=== PATIENT | male | born 1955 | race Caucasian/White ===

== ENCOUNTER → 2018-01-21 | Outpatient (CLI) | payer OTHER ==
[~2018-01-21] MED LIST: AMLO5 PO; DOCU1CAP39 PO; HYDR-3516 PO; TAMS5CAP PO
[2018-01-21 12:43] LABS: HEMATOCRIT 36.8 % (39.0-51.0); HEMOGLOBIN 12.1 GM/DL (13.0-17.0); MEAN CELL VOLUME 101.9 FL (80.0-100.0); MEAN CORPUSCULAR HEMOGLOBIN 33.5 PG (27.0-34.0); MEAN CORPUSCULAR HGB CONC 32.9 % (32.0-36.0); MEAN PLATELET VOLUME 10.8 FL (7.0-11.0); PLATELET COUNT 130 TH/MM3 (150-450); RED BLOOD COUNT 3.61 MIL/MM3 (4.50-5.90); RED CELL DISTRIBUTION WIDTH 13.7 % (11.6-17.2); WHITE BLOOD COUNT 5.4 TH/MM3 (4.0-11.0)
[2018-01-21 12:46] LABS: BILIRUBIN, URINE NEG (NEG); BLOOD, URINE NEG (NEG); GLUCOSE,URINE NEG (NEG); KETONE, URINE NEG (NEG); NITRITE,URINE NEG (NEG); URINE COLOR LIGHT-YELLOW (YELLW/STRAW); URINE LEUKOCYTE ESTERASE NEG (NEG)
[2018-01-21 12:56] LABS: INTERNATIONAL NORMALIZED RATIO 1.1 RATIO; PROTHROMBIN TIME - PATIENT 10.7 SEC (9.8-11.6)
--- NOTE | 2018-01-21 13:02 | RADRPT ---
EXAM DATE: 01/21/2018 12:50 PM EDT AGE/SEX: 62 years / Male INDICATIONS: Evaluate for pneumothorax, pneumonia and communicable diseases. Pre-op lung biopsy CLINICAL DATA: This is the patient's initial encounter. Patient reports that signs and symptoms have been present for 1 day and indicates a pain score of 0/10. MEDICAL/SURGICAL HISTORY: Hypertension. None. COMPARISON: [facility], CT LUNG SCREENING, 01/07/2018. . FINDINGS: The heart size is within normal limits. The lungs are clear. No effusions are seen. The lungs appear hyperinflated. CONCLUSION: No acute cardiopulmonary process. Electronically signed by: Tj Linares MD 01/21/2018 1:01 PM EDT
[2018-01-21 13:03] LABS: BICARBONATE 27.1 MEQ/L (21.0-32.0); CALCIUM 9.3 MG/DL (8.5-10.1); CREATININE 0.65 MG/DL (0.60-1.30)
--- NOTE | 2018-01-21 17:15 | EKG ---
Date Performed: 01/21/2018 Time Performed: 12:10:58 PTAGE: 62 years EKG: SINUS BRADYCARDIA BORDERLINE ECG Since the PREVIOUS TRACING , no significant change noted DOCTOR: Kj Betts Interpretating Date/Time 01/21/2018 17:14:29
--- NOTE | 2018-01-22 09:55 | RSPPFT ---
DATE OF PROCEDURE: 01/21/18 COMMENTS: VOLUMES DYNAMIC: FVC normal; FEV1 mildly reduced. FLOWS: FEV1% mildly reduced; FEF 25-75 moderately reduced. IMPRESSION: Mild obstructive ventilatory defect.
== END ==
LOC: CPRE 11:48
PROVIDERS: ATTEND Thoracic Surgery (Cardiothoracic Vascular Surgery)
DX: Z01.812 Encounter for preprocedural laboratory examination (principal); Z01.811 Encounter for preprocedural respiratory examination; Z01.810 Encounter for preprocedural cardiovascular examination; R91.8 Other nonspecific abnormal finding of lung field; R00.1 Bradycardia, unspecified
CPT/HCPCS: 36415; 71046; 80048; 81001; 85027; 85610; 85730; 86850; 86900; 86901; 93005; 94010

== ENCOUNTER 2018-01-23 05:31 | Inpatient (IN) | payer OTHER ==
[~2018-01-23] VITALS: Ht 177.8 cm; Wt 71.1 kg
[2018-01-23] VITALS (10 sets, daily range): BP systolic 136–156; BP diastolic 63–73; PULSE 57–79; RESP 17–18; TEMP 98.3–98.7; O2SAT 94–97
[2018-01-23] MEDS ORDERED: METOPROLOL TARTRATE 25 MG TAB PO PRN (06:00)
[2018-01-23] MEDS ORDERED: POVIDONE IODINE 5% (ANTISEPSIS KIT) 4 APPLICATIONS EACH NARE PRN (06:00)
[2018-01-23] MEDS ORDERED: LACTATED RINGER'S 1000 ML IV PRN (06:00)
[2018-01-23] MEDS ORDERED: SODIUM CHLORID 0.9% 500 ML IV PRN (06:00)
[2018-01-23] MEDS ORDERED: CHLORHEXIDINE GLUCONATE 2 % 1 PACK (2 CLOTHS) TOPICAL PRN (06:00)
[2018-01-23] MEDS ORDERED: ceFAZolin 2 GM PREMIX 50 ML ONE (06:50)
[2018-01-23] MEDS ORDERED: methylPREDNISolone SOD SUCC 125 MG/2 ML VIAL ONE (06:50)
[2018-01-23] MEDS ORDERED: CEFAZOLIN 500 MG in NS IRR BTL 500 ML IRRIGATION SCH (07:30)
[2018-01-23] MEDS ORDERED: BUPIVACAINE LIPOSO PF 1.3% INJ 20 ML, DEXAMETHASONE INJ 4 MG, MORPHINE INJ 8 MG in SODI... IRRIGATION ONE (07:30)
[2018-01-23] MEDS ORDERED: CEFAZOLIN IRRIGATION SCH (08:00)
[2018-01-23] MEDS ORDERED: SODIUM CHLORIDE 0.9% IRRIGATION SCH (08:00)
[2018-01-23] MEDS ORDERED: IRR IRRIGATION SCH (08:00)
[2018-01-23] MEDS ORDERED: HYDROmorphone HCL PF 2 MG/ML VIAL ONE (09:00)
[2018-01-23] MEDS ORDERED: PROPOFOL 200 MG/20 ML AMP IV ONE (12:00)
[2018-01-23] MEDS ORDERED: ROCURONIUM INJ 100 MG/10 ML VIAL IV ONE (12:00)
[2018-01-23] MEDS ORDERED: LIDOCAINE HCL 1% PF 5 ML SYRINGE OTHER ONE (12:00)
[2018-01-23] MEDS ORDERED: ceFAZolin INJ 1,000 MG VIAL IV ONE ×2 (12:00→12:14)
[2018-01-23] MEDS ORDERED: NEOSTIGMINE 5 MG/5 ML SYRINGE IV PUSH ONE (12:00)
[2018-01-23] MEDS ORDERED: LACTATED RINGER'S 1000 ML INJ 1,000 ML IV ONE (12:00)
[2018-01-23] MEDS ORDERED: NORMOSOL R INJ 2,000 ML IV ONE (12:00)
[2018-01-23] MEDS ORDERED: ePHEDrine/NS 25 MG/5 ML SYRINGE IV ONE (12:00)
[2018-01-23] MEDS ORDERED: LABETALOL HCL 100 MG/20 ML VIAL IV ONE (12:00)
[2018-01-23] MEDS ORDERED: DEXAMETHASONE SOD PHOS 4 MG/ML VIAL IV ONE (12:00)
[2018-01-23] MEDS ORDERED: GLYCOPYRROLATE 1 MG/5 ML SYRINGE IV PUSH ONE (12:00)
[2018-01-23] MEDS ORDERED: ONDANSETRON HCL 4 MG/2 ML VIAL IV PUSH ONE (12:00)
[2018-01-23] MEDS ORDERED: SUGAMMADEX SODIUM 200 MG/2 ML VIAL IV PUSH ONE (12:10)
[2018-01-23] MEDS ORDERED: SODIUM CHLORIDE 0.9% FLUSH 10 ML FLUSH IV FLUSH PRN (12:30)
[2018-01-23] MEDS ORDERED: NALOXONE HCL 0.4 MG/ML AMP IV PUSH PRN (12:30)
[2018-01-23] MEDS ORDERED: RESP: ALBUTEROL 2.5 MG/3 ML NEB (PRN) NEB (12:30)
[2018-01-23] MEDS ORDERED: ACETAMINOPHEN 325 MG TAB PO PRN (12:30)
[2018-01-23] MEDS ORDERED: Post-op Orders (for Pharmacy) OTHER ONE (12:30)
[2018-01-23] MEDS ORDERED: DO NOT ADM ANY ANTICOAGULANT DRUGS PRN (12:30)
--- NOTE | 2018-01-23 12:49 | PD.OP ---
Operative Report Date of Surgery: Jan 23, 2018 Preoperative Diagnosis: (1) Lung mass (2) COPD (chronic obstructive pulmonary disease) (3) Tobacco abuse Postoperative Diagnosis: same, lung adenocarcinoma Procedure: Left thoracoscopic excisional biopsy left upper lobe mass VATS left upper lobectomy with lymph node sampling Anesthesia: Dr. Redmond Surgeon: Jael Cox Station Inspector(s): Angelica Hsu, PRO Operation and Findings: After adequate general anesthesia the patient was placed in the right lateral decubitus position and the left chest was prepped and draped in usual manner. A small anterior port incision was performed in the 7th intercostal space and electrocautery was used to obtain hemostasis. A 10mm port was inserted into the pleural space with single lung ventilation. Insufflation to 8cmH2O was used to assist in exposure. A second 15 mm port was placed at the same level posteriorly for stapler access. Last, a 6cm utility incision was placed at the 4th intercostal space at the posterior axillary line. Exploration of the left hemithorax was significant for a very small mass in the left upper lobe consistent with the CT-PET scan. An excisional biopsy was performed and submitted for frozen section. This was notable fopr adenocarcinoma. Therefore, a lobectomy was performed. The pleural reflection was divided anteriorly from the major fissure up and around posteriorly. The left superior pulmonary vein was isolated and divided using an endo-ISABELLE vascular stapler. The pulmonary artery segmental arterial branches were ligated and divided in a similar manner. The fissure was developed using an endo ISABELLE stapler and blunt dissection. The right upper lobe bronchus was isolated and divided using an endo ISABELLE stapler. The specimen was submitted to pathology for permanent section. Additionally, a level 5 AP window and level 9 hilar lymph nodes were resected and submitted for permanent section. The inferior pulmonary ligament was divided using electrocautery and blunt dissection. A 32 Italian chest tube was placed through the anterior port incision and secured with 0 silk suture. Esparel intercostal blocks were infused for postoperative analgesia. The lung was ventilated and no significant air leaks were found. The utility port was closed in layers approximately each layer with a running 2-0 vicryl suture. The subcutaneous tissues approximated running 2-0 Vicryl suture and the skin was approximated using running 4-0 Monocryl subcuticular stitch. All sponges history counts were correct at the close the procedure and the patient was transferred to the CVICU for recovery purposes. Specimen: left upper lobe mass, left upper lobe, level 5 and level 9 lymph nodes. Drain: 32F chest tube Jael Cox MD Jan 23, 2018 12:49
[2018-01-23] MEDS ORDERED: *morphine SULFATE 4 MG/ML PERIprocedure ONLY ONE (12:53)
[2018-01-23] MEDS: MORPHINE SULFATE 30 MG/30 ML PCA IV SCH (13:00)
[2018-01-23] MEDS: KETOROLAC TROMETHAMINE 30 MG/ML (IVP) VIAL IV PUSH SCH ×2 (13:09→20:34)
[2018-01-23] MEDS ORDERED: MIDAZOLAM HCL 2 MG/2 ML VIAL ONE (13:10)
--- NOTE | 2018-01-23 13:31 | RADRPT ---
EXAM DATE: 01/23/2018 1:22 PM EDT AGE/SEX: 62 years / Male INDICATIONS: Status post thoracotomy. CLINICAL DATA: This is the patient's initial encounter. Patient reports that signs and symptoms have been present for 1 day and indicates a pain score of Nonresponsive. MEDICAL/SURGICAL HISTORY: Hypertension. None. COMPARISON: No prior exams available for comparison. FINDINGS: 2 portable frontal views of the chest show a left thoracostomy tube with the tip at the apex. No pneu mothorax. Heart is mildly enlarged. Interstitial prominence throughout both lungs most pronounced wit hin the right base. No intra-alveolar opacities or effusions. Bony structures are unremarkable. CONCLUSION: Left thoracostomy tube without pneumothorax. Cardiomegaly with interstitial prominence suggesting int erstitial edema. Electronically signed by: Checo Pagan MD 01/23/2018 1:30 PM EDT
--- NOTE | 2018-01-23 14:56 | PD.CAR.PN ---
CVT Progress Note Subjective/Hospital Course: 62/ male hx of tobacco abuse 2-3ppd fpr 47 yrs . Underwent routine physical exam , CT chest showed 1 cm left upper lobe mass . PET scan showed hypermetabolism consistent with malignancy. electively admitted for surgery 01/23 surgery: Left thoracoscopic excisional biopsy left upper lobe mass VATS left upper lobectomy with lymph node sampling Objective: Vital Signs Date Time Temp Pulse Resp B/P (MAP) Pulse Ox O2 Delivery O2 Flow Rate FiO2 01/23/18 14:00 54 12 152/70 (97) 97 01/23/18 13:45 52 17 139/65 (89) 96 01/23/18 13:30 59 10 150/67 (94) 93 01/23/18 13:15 65 13 166/70 (102) 93 01/23/18 13:00 63 11 176/83 (114) 99 Nasal Cannula 3 01/23/18 13:00 12 01/23/18 12:45 63 12 176/79 (111) 100 01/23/18 12:30 62 12 145/64 (91) 89 Simple Mask 6 01/23/18 12:26 97.1 61 11 146/67 (93) 96 Simple Mask 6 01/23/18 06:00 98.3 52 18 158/79 (105) 97 (1) COPD (chronic obstructive pulmonary disease) (2) Tobacco abuse (3) Lung mass (4) S/P thoracotomy Sandra Otto Jan 23, 2018 14:56
[2018-01-23] MEDS: PANTOPRAZOLE SOD 40 MG DELAYED RELEASE TAB PO SCH (20:33)
[2018-01-23] MEDS: SODIUM CHLORIDE 0.9% FLUSH 10 ML FLUSH IV FLUSH SCH (21:00)
[2018-01-23] MEDS ORDERED: DOCUSATE CALCIUM 240 MG CAP PO SCH (21:00)
[2018-01-23] MEDS: PCA - TOTAL MG MORPHINE DELIVERED PER SHIFT SCH (22:00)
[2018-01-24] VITALS (28 sets, daily range): BP systolic 119–184; BP diastolic 57–78; PULSE 47–77; RESP 17–21; TEMP 97.9–99.3; O2SAT 90–99
[2018-01-24] MEDS: KETOROLAC TROMETHAMINE 30 MG/ML (IVP) VIAL IV PUSH SCH ×2 (03:33→08:30)
[2018-01-24] MEDS: RESP: ALBUTEROL 2.5 MG/3 ML NEB (SCH) NEB ×4 (03:34→22:56)
[2018-01-24 04:27] LABS: AUTOMATED NEUTROPHIL # 8.4 TH/MM3 (1.8-7.7); BASOPHIL % 0.1 % (0.0-2.0); HEMATOCRIT 33.8 % (39.0-51.0); HEMOGLOBIN 11.1 GM/DL (13.0-17.0); LYMPH % 8.3 % (9.0-44.0); LYMPHOCYTE # 0.8 TH/MM3 (1.0-4.8); MEAN CELL VOLUME 102.8 FL (80.0-100.0); MEAN CORPUSCULAR HEMOGLOBIN 33.7 PG (27.0-34.0); MEAN CORPUSCULAR HGB CONC 32.7 % (32.0-36.0); MONO % 7.5 % (0.0-8.0); MONOCYTE # 0.7 TH/MM3 (0-0.9); NEUT % 84.1 % (16.0-70.0); PLATELET COUNT 110 TH/MM3 (150-450); RED BLOOD COUNT 3.29 MIL/MM3 (4.50-5.90); RED CELL DISTRIBUTION WIDTH 13.8 % (11.6-17.2); WHITE BLOOD COUNT 9.9 TH/MM3 (4.0-11.0)
--- NOTE | 2018-01-24 04:43 | RADRPT ---
EXAM DATE: 01/24/2018 4:40 AM EDT AGE/SEX: 62 years / Male INDICATIONS: Status post thoracotomy. CLINICAL DATA: This is the patient's subsequent encounter. Patient reports that signs and symptoms h ave been present for 1 day and indicates a pain score of Nonresponsive. MEDICAL/SURGICAL HISTORY: Hypertension. None. COMPARISON: [facility] [place], CHEST SINGLE AP, 01/23/2018. . FINDINGS: Left chest tube without pneumothorax. Focal consolidation right lung base which is a new finding sinc e January 23. Minimal left basilar opacity. No significant effusion. No pneumothorax. CONCLUSION: Left chest tube without pneumothorax. Focal consolidation right lung base. Differential diagnosis inc ludes pneumonia and atelectasis. Electronically signed by: Nitesh Colindres MD 01/24/2018 4:42 AM EDT
[2018-01-24 05:09] LABS: BICARBONATE 28.8 MEQ/L (21.0-32.0); CALCIUM 7.9 MG/DL (8.5-10.1); CREATININE 0.65 MG/DL (0.60-1.30)
[2018-01-24] MEDS: MORPHINE SULFATE 30 MG/30 ML PCA IV SCH (05:18)
[2018-01-24] MEDS: PCA - TOTAL MG MORPHINE DELIVERED PER SHIFT SCH ×3 (06:00→22:00)
[2018-01-24] MEDS ORDERED: BISACODYL 10 MG SUPP RECTAL ONE (08:45)
[2018-01-24] MEDS: SODIUM CHLORIDE 0.9% FLUSH 10 ML FLUSH IV FLUSH SCH ×2 (09:00→21:00)
--- NOTE | 2018-01-24 12:32 | PD.CAR.PN ---
CVT Progress Note Subjective/Hospital Course: 62/ male hx of tobacco abuse 2-3ppd fpr 47 yrs . Underwent routine physical exam , CT chest showed 1 cm left upper lobe mass . PET scan showed hypermetabolism consistent with malignancy. electively admitted for surgery 01/23 surgery: Left thoracoscopic excisional biopsy left upper lobe mass VATS left upper lobectomy with lymph node sampling 01/24 doing well , up in chair chest tube to wall suction + 1 air leak drained 270cc/ 12 hrs pain controlled Objective: GENERAL: A&O x 3 SKIN: Warm and dry. incision intact and well approximated right postero lateral chest wall x 2 HEAD: Normocephalic. EYES: No scleral icterus. No injection or drainage. NECK: Supple, trachea midline. No JVD or lymphadenopathy. CARDIOVASCULAR: Regular rate and rhythm without murmurs, gallops, or rubs. RESPIRATORY: Breath sounds equal bilaterally. No accessory muscle use. chest tube to 20cm suction / + 1 air leak GASTROINTESTINAL: Abdomen soft, non-tender, nondistended. MUSCULOSKELETAL: No cyanosis, or edema. BACK: Nontender without obvious deformity. No CVA tenderness. Vital Signs Date Time Temp Pulse Resp B/P (MAP) Pulse Ox O2 Delivery O2 Flow Rate FiO2 01/24/18 11:30 98.1 54 18 184/77 (112) 90 01/24/18 08:37 94 2.00 01/24/18 08:15 97.9 55 18 119/57 (77) 90 01/24/18 07:01 47 01/24/18 06:36 62 01/24/18 06:00 18 01/24/18 05:30 53 01/24/18 05:18 19 01/24/18 04:18 54 01/24/18 03:16 98.2 54 17 158/71 (100) 99 01/24/18 03:16 58 01/24/18 02:26 59 01/24/18 01:20 56 01/24/18 00:05 55 01/23/18 23:24 98.3 62 18 136/63 (87) 97 01/23/18 23:24 63 01/23/18 22:30 57 01/23/18 22:00 18 01/23/18 21:00 61 01/23/18 20:00 70 01/23/18 19:20 79 01/23/18 19:20 98.5 74 17 152/71 (98) 96 01/23/18 18:01 63 01/23/18 17:07 61 01/23/18 16:38 71 18 150/72 (98) 95 01/23/18 16:36 68 01/23/18 15:55 98.7 65 18 156/73 (100) 94 01/23/18 15:45 98.2 66 12 139/57 (84) 96 Nasal Cannula 2 01/23/18 15:00 66 15 156/67 (96) 97 01/23/18 14:00 54 12 152/70 (97) 97 01/23/18 13:45 52 17 139/65 (89) 96 01/23/18 13:30 59 10 150/67 (94) 93 01/23/18 13:15 65 13 166/70 (102) 93 01/23/18 13:00 63 11 176/83 (114) 99 Nasal Cannula 3 01/23/18 13:00 12 01/23/18 12:45 63 12 176/79 (111) 100 01/23/18 12:30 62 12 145/64 (91) 89 Simple Mask 6 01/23/18 12:26 97.1 61 11 146/67 (93) 96 Simple Mask 6 Labs: Laboratory Tests Test 01/24/18 03:49 White Blood Count 9.9 TH/MM3 (4.0-11.0) Red Blood Count 3.29 MIL/MM3 (4.50-5.90) Hemoglobin 11.1 GM/DL (13.0-17.0) Hematocrit 33.8 % (39.0-51.0) Mean Corpuscular Volume 102.8 FL (80.0-100.0) Mean Corpuscular Hemoglobin 33.7 PG (27.0-34.0) Mean Corpuscular Hemoglobin Concent 32.7 % (32.0-36.0) Red Cell Distribution Width 13.8 % (11.6-17.2) Platelet Count 110 TH/MM3 (150-450) Mean Platelet Volume 11.0 FL (7.0-11.0) Neutrophils (%) (Auto) 84.1 % (16.0-70.0) Lymphocytes (%) (Auto) 8.3 % (9.0-44.0) Monocytes (%) (Auto) 7.5 % (0.0-8.0) Eosinophils (%) (Auto) 0.0 % (0.0-4.0) Basophils (%) (Auto) 0.1 % (0.0-2.0) Neutrophils # (Auto) 8.4 TH/MM3 (1.8-7.7) Lymphocytes # (Auto) 0.8 TH/MM3 (1.0-4.8) Monocytes # (Auto) 0.7 TH/MM3 (0-0.9) Eosinophils # (Auto) 0.0 TH/MM3 (0-0.4) Basophils # (Auto) 0.0 TH/MM3 (0-0.2) CBC Comment DIFF FINAL Differential Comment Blood Urea Nitrogen 12 MG/DL (7-18) Creatinine 0.65 MG/DL (0.60-1.30) Random Glucose 102 MG/DL (74-106) Calcium Level 7.9 MG/DL (8.5-10.1) Sodium Level 142 MEQ/L (136-145) Potassium Level 4.3 MEQ/L (3.5-5.1) Chloride Level 106 MEQ/L (98-107) Carbon Dioxide Level 28.8 MEQ/L (21.0-32.0) Anion Gap 7 MEQ/L (5-15) Estimat Glomerular Filtration Rate 125 ML/MIN (>89) Result Diagram: 01/24/18 0349 01/24/18 0349 (1) S/P thoracotomy Plan: pain control leave chest tube in + 1 air leak / leave to suction pulm toileting await path (2) COPD (chronic obstructive pulmonary disease) Plan: nebs (3) Tobacco abuse Plan: smoking cessation (4) Lung mass Plan: path pending Sandra Otto Jan 24, 2018 12:32
--- NOTE | 2018-01-24 12:35 | HHI.FF ---
Face to Face Verification Diagnosis: (1) COPD (chronic obstructive pulmonary disease) (2) Tobacco abuse (3) Lung mass (4) S/P thoracotomy Home Health Nursing Order: Medication education-adverse effect Wound care and dressing changes Nursing assessment with vital signs Instructions: Thoracic Surgery patients Mandatory frequency Assess and evaluation, 2-3 x a week for one week Initial visit 1. Review post chest surgery instructions chest precautions, Activity, Elastic hose, Incision care, Driving, Incentive spirometry, Smoking, [place] , Work and other) 2. Need Betadine to paint incision 3. Medication reconciliation 4. Importance of follow up care/ check on appointments 5. Make calendar record temperature daily 6. When to call Home nurse, review instructions, phone list 7. Incentive Spirometry, demonstration Visit 1- Begin discharge instruction for patient family and/ or caregiver using teach back method- 1. Signs and symptoms of infection 2. Disease characteristics 3. Medicines and side effects 4. Foods and nutrition/ appetite 5. Infection control/ hand washing/ hygiene Visit 2- Continue teaching 1. Discharge instructions- include additional information on smoking cessation , Visit 3- Continue teaching- 1. Cough and deep breathing, incision monitoring. For any questions please call : / [facility] Cardiothoracic Surgery Incentive spirometry Q1 hr x 10, while awake, also use acapella device hourly whole Chest wall precautions: NO pushing or pulling, ( pt must use chest pillow support chest with all activities and with coughing Daily incision care: ok to shower ( 48hrs after chest tube removed) and then daily, no tub bath. Wash all incisions with liquid dial soap, clean wash cloth to each site, rinse and pat dry. Observe for any signs of infection, such as drainage which is dark yellow, mccann, green or foul smelling. Immediately report to the surgeon any drainage from the chest incision, or legs, and for any abnormal drainage from the chest tube sites. Notify surgeon if any temp > 101.5 degrees F. When specialty dressing removed/ or if you do not have one, continue to shower daily as above, then rinse and pat incision dry and paint with betadine daily x 5 days. Allow steri strips to fall off if you have any. Avoid lotions, creams, salves, oils, etc. for the first month For Dr. Cox patients , please obtain PA & Lat CXR in 2 weeks, results to Dr. Cox ( prescription will be given) ( ) (Tele: ) , F/U appointment: as per [place] instructions: PCP in 2 weeks, CV surgeon 2 weeks, Assistant Produce Manager 3-4 weeks For any questions regarding incisions/ dressing / meds / post op care or above Symptoms, Saturday 8am-5pm Heart & Vascular Surgery Office ( Dr. Martino & Dr. Cox), After Hours / Nights (5pm -8am) Weekends and Holidays Please call [facility] Cardiac [facility] Unit ([facility]) Charge Nurse I have seen patient Maurisio Berman on 01/24/18. My clinical findings support the need for the requested home health care services because: Deconditioned w/ increased weakness I certify that my clinical findings support that this patient is homebound because: Post-op weakness Hx COPD- exertion dyspnea/weakness Sandra Otto Jan 24, 2018 12:35
[2018-01-24] MEDS: TAMSULOSIN HCL 0.4 MG CAP PO SCH (17:29)
[2018-01-24] MEDS: DOCUSATE SODIUM 100 MG CAP PO SCH ×2 (21:00→21:10)
[2018-01-24] MEDS: PANTOPRAZOLE SOD 40 MG DELAYED RELEASE TAB PO SCH (21:10)
[2018-01-24] MEDS: ONDANSETRON ODT 4 MG TAB SL PRN (21:10)
[2018-01-25] VITALS (29 sets, daily range): BP systolic 125–159; BP diastolic 60–72; PULSE 57–72; RESP 17–19; TEMP 98.2–99; O2SAT 86–99
[2018-01-25] MEDS: RESP: ALBUTEROL 2.5 MG/3 ML NEB (SCH) NEB ×4 (04:03→20:31)
[2018-01-25] MEDS: ONDANSETRON ODT 4 MG TAB SL PRN (04:37)
[2018-01-25] MEDS: PCA - TOTAL MG MORPHINE DELIVERED PER SHIFT SCH ×2 (06:00→10:01)
[2018-01-25] MEDS: POLYETHYLENE GLYCOL 17 GM PKG PO SCH (09:30)
[2018-01-25] MEDS: DOCUSATE SODIUM 100 MG CAP PO SCH ×2 (09:30→21:14)
[2018-01-25] MEDS: TAMSULOSIN HCL 0.4 MG CAP PO SCH (09:30)
[2018-01-25] MEDS: SODIUM CHLORIDE 0.9% FLUSH 10 ML FLUSH IV FLUSH SCH ×2 (09:33→21:15)
--- NOTE | 2018-01-25 09:40 | PD.CAR.PN ---
CVT Progress Note Subjective/Hospital Course: 62/ male hx of tobacco abuse 2-3ppd fpr 47 yrs . Underwent routine physical exam , CT chest showed 1 cm left upper lobe mass . PET scan showed hypermetabolism consistent with malignancy. electively admitted for surgery 01/23 surgery: Left thoracoscopic excisional biopsy left upper lobe mass VATS left upper lobectomy with lymph node sampling 01/24 doing well , up in chair chest tube to wall suction + 1 air leak drained 270cc/ 12 hrs pain controlled 01/[address] with small air-leak. Keep to suction Change IV HAND PACKAGER to PO Meds Ambulate Objective: Vital Signs Date Time Temp Pulse Resp B/P (MAP) Pulse Ox O2 Delivery O2 Flow Rate FiO2 01/25/18 09:00 66 01/25/18 08:33 95 Nasal Cannula 2.00 01/25/18 08:00 59 01/25/18 07:15 58 01/25/18 07:15 98.2 64 17 138/63 (88) 97 01/25/18 07:15 97 Nasal Cannula 2.00 01/25/18 06:06 60 01/25/18 06:00 19 01/25/18 05:23 62 01/25/18 04:25 68 01/25/18 03:30 67 01/25/18 03:20 99.0 65 19 159/72 (101) 92 01/25/18 02:00 64 01/25/18 01:20 69 01/25/18 00:20 72 01/24/18 23:28 99.3 73 20 170/78 (108) 94 01/24/18 23:28 73 01/24/18 22:00 75 01/24/18 22:00 18 01/24/18 21:30 77 01/24/18 20:02 68 01/24/18 19:20 75 01/24/18 19:20 98.7 71 21 159/77 (104) 92 01/24/18 18:00 72 01/24/18 17:00 62 01/24/18 16:00 66 01/24/18 15:15 98.2 65 18 148/70 (96) 96 01/24/18 15:00 67 01/24/18 14:00 66 01/24/18 13:00 62 01/24/18 12:01 76 01/24/18 11:30 98.1 54 18 184/77 (112) 90 01/24/18 11:00 59 01/24/18 10:00 60 Result Diagram: 01/24/18 0349 01/24/18 0349 (1) S/P thoracotomy Plan: pain control leave chest tube in + 1 air leak / leave to suction pulm toileting await path (2) COPD (chronic obstructive pulmonary disease) Plan: nebs (3) Tobacco abuse Plan: smoking cessation (4) Lung mass Plan: path pending Abby Martino MD Jan 25, 2018 09:40
[2018-01-25] MEDS: ACETAMINOPHEN/HYDROcodone 325 MG/5 MG TAB PO PRN ×3 (09:51→21:14)
[2018-01-25] MEDS: PANTOPRAZOLE SOD 40 MG DELAYED RELEASE TAB PO SCH (21:14)
[2018-01-26] VITALS (28 sets, daily range): BP systolic 137–177; BP diastolic 62–82; PULSE 58–75; RESP 16–20; TEMP 97.7–98.4; O2SAT 93–95
[2018-01-26] MEDS: RESP: ALBUTEROL 2.5 MG/3 ML NEB (SCH) NEB ×4 (03:38→20:40)
[2018-01-26] MEDS: ACETAMINOPHEN/HYDROcodone 325 MG/5 MG TAB PO PRN ×4 (05:42→22:04)
[2018-01-26] MEDS: DOCUSATE SODIUM 100 MG CAP PO SCH ×2 (08:16→22:04)
[2018-01-26] MEDS: TAMSULOSIN HCL 0.4 MG CAP PO SCH (08:16)
[2018-01-26] MEDS: POLYETHYLENE GLYCOL 17 GM PKG PO SCH (08:16)
[2018-01-26] MEDS: SODIUM CHLORIDE 0.9% FLUSH 10 ML FLUSH IV FLUSH SCH ×2 (08:19→22:06)
--- NOTE | 2018-01-26 09:22 | PD.CAR.PN ---
CVT Progress Note Subjective/Hospital Course: 62/ male hx of tobacco abuse 2-3ppd fpr 47 yrs . Underwent routine physical exam , CT chest showed 1 cm left upper lobe mass . PET scan showed hypermetabolism consistent with malignancy. electively admitted for surgery 01/23 surgery: Left thoracoscopic excisional biopsy left upper lobe mass VATS left upper lobectomy with lymph node sampling 01/24 doing well , up in chair chest tube to wall suction + 1 air leak drained 270cc/ 12 hrs pain controlled 01/[address] with small air-leak. Keep to suction Change IV MANAGER OF SOFTWARE DEVELOPMENT to PO Meds Ambulate 01/26 Doing well Continued air-leak Maintain CT Objective: Vital Signs Date Time Temp Pulse Resp B/P (MAP) Pulse Ox O2 Delivery O2 Flow Rate FiO2 01/26/18 07:36 93 01/26/18 07:15 98.2 66 19 144/66 (92) 94 01/26/18 07:15 94 Room Air 01/26/18 06:18 61 01/26/18 05:44 65 01/26/18 04:55 66 01/26/18 03:15 98.4 65 18 147/62 (90) 94 01/26/18 03:15 65 01/26/18 02:14 63 01/26/18 01:41 66 01/26/18 00:09 61 01/25/18 23:50 62 01/25/18 23:40 98.4 61 19 149/70 (96) 94 01/25/18 22:00 58 01/25/18 21:00 67 01/25/18 20:35 91 01/25/18 20:00 62 01/25/18 19:40 98.6 66 18 125/60 (81) 93 01/25/18 19:40 57 01/25/18 19:40 93 Room Air 01/25/18 18:00 68 01/25/18 17:36 18 01/25/18 17:00 68 01/25/18 16:00 64 01/25/18 15:51 86 21 01/25/18 15:00 98.2 64 19 133/63 (86) 97 01/25/18 15:00 65 01/25/18 14:00 59 01/25/18 13:00 60 01/25/18 12:00 58 01/25/18 11:00 59 01/25/18 11:00 99 Nasal Cannula 1.00 01/25/18 11:00 98.3 64 18 137/63 (87) 99 01/25/18 10:01 18 01/25/18 10:00 60 Result Diagram: 01/24/18 0349 01/24/18 0349 (1) S/P thoracotomy Plan: pain control leave chest tube in + 1 air leak / leave to suction pulm toileting await path (2) COPD (chronic obstructive pulmonary disease) Plan: nebs (3) Tobacco abuse Plan: smoking cessation (4) Lung mass Plan: path pending Abby Martino MD Jan 26, 2018 09:22
[2018-01-26] MEDS: MAGNESIUM HYDROXIDE SUSP 30 ML CUP PO PRN (22:04)
[2018-01-26] MEDS: PANTOPRAZOLE SOD 40 MG DELAYED RELEASE TAB PO SCH (22:04)
[2018-01-27] VITALS (25 sets, daily range): BP systolic 133–170; BP diastolic 61–78; PULSE 54–90; RESP 16–18; TEMP 97.6–97.8; O2SAT 93–97
[2018-01-27] MEDS: ACETAMINOPHEN/HYDROcodone 325 MG/5 MG TAB PO PRN ×5 (00:35→21:43)
[2018-01-27] MEDS: RESP: ALBUTEROL 2.5 MG/3 ML NEB (SCH) NEB ×2 (03:34→08:17)
[2018-01-27] MEDS: POLYETHYLENE GLYCOL 17 GM PKG PO SCH ×2 (08:17→10:50)
[2018-01-27] MEDS: MAGNESIUM HYDROXIDE SUSP 30 ML CUP PO PRN (08:17)
[2018-01-27] MEDS: DOCUSATE SODIUM 100 MG CAP PO SCH ×2 (08:17→21:00)
[2018-01-27] MEDS: SODIUM CHLORIDE 0.9% FLUSH 10 ML FLUSH IV FLUSH SCH ×2 (08:17→21:00)
[2018-01-27] MEDS: TAMSULOSIN HCL 0.4 MG CAP PO SCH (08:17)
[2018-01-27] MEDS ORDERED: SOD PHOSPHATE/SOD BIPHOSPHATE (ADULT) ENEMA 133ML PR ONE (11:00)
[2018-01-27] MEDS ORDERED: BISACODYL 10 MG SUPP RECTAL ONE (11:00)
--- NOTE | 2018-01-27 11:19 | RADRPT ---
EXAM DATE: 01/27/2018 11:15 AM EDT AGE/SEX: 62 years / Male INDICATIONS: Evaluate pneumothorax. CLINICAL DATA: This is the patient's subsequent encounter. Patient reports that signs and symptoms h ave been present for 2 days and indicates a pain score of 0/10. MEDICAL/SURGICAL HISTORY: . Left side chest tube placement. Smoker. . Thoracoscopy. [place] [facility] [place]. . FINDINGS: Left chest tube in good position. There is no pneumothorax. Minimal bibasilar parenchymal changes are evident improvement in the interval. The heart and pulmonary vascularity are normal. CONCLUSION: Left chest tube in good position without pneumothorax. Electronically signed by: Marlon Byrd MD 01/27/2018 11:17 AM EDT
--- NOTE | 2018-01-27 14:55 | PD.CAR.PN ---
CVT Progress Note Subjective/Hospital Course: 62/ male hx of tobacco abuse 2-3ppd fpr 47 yrs . Underwent routine physical exam , CT chest showed 1 cm left upper lobe mass . PET scan showed hypermetabolism consistent with malignancy. electively admitted for surgery 01/23 surgery: Left thoracoscopic excisional biopsy left upper lobe mass VATS left upper lobectomy with lymph node sampling 01/24 doing well , up in chair chest tube to wall suction + 1 air leak drained 270cc/ 12 hrs pain controlled 01/[address] with small air-leak. Keep to suction Change IV EYEGLASS LENS CUTTER to PO Meds Ambulate 01/26 Doing well Continued air-leak Maintain CT 01/27 chest tube to water seal drained 150cc/ 12 hrs + 1 air leak / CXR no PTX f/u CXR in am path pending Objective: GENERAL: A&O x 3 SKIN: Warm and dry. HEAD: Normocephalic. EYES: No scleral icterus. No injection or drainage. NECK: Supple, trachea midline. No JVD or lymphadenopathy. CARDIOVASCULAR: Regular rate and rhythm without murmurs, gallops, or rubs. RESPIRATORY: Breath sounds equal bilaterally. No accessory muscle use. chest tube to telles seal, + 1 air leak GASTROINTESTINAL: Abdomen soft, non-tender, nondistended. MUSCULOSKELETAL: No cyanosis, or edema. BACK: Nontender without obvious deformity. No CVA tenderness. Vital Signs Date Time Temp Pulse Resp B/P (MAP) Pulse Ox O2 Delivery O2 Flow Rate FiO2 01/27/18 14:14 69 01/27/18 13:11 67 01/27/18 12:16 62 01/27/18 11:00 90 01/27/18 11:00 97.7 71 18 144/68 (93) 94 01/27/18 10:11 69 01/27/18 09:18 16 01/27/18 09:09 61 01/27/18 08:19 93 21 01/27/18 08:00 97.6 59 18 152/68 (96) 96 01/27/18 08:00 54 01/27/18 08:00 96 Room Air 01/27/18 06:00 60 01/27/18 05:00 60 01/27/18 04:00 60 01/27/18 03:52 64 16 170/77 (108) 96 01/27/18 03:00 59 01/27/18 02:00 60 01/27/18 01:00 62 01/27/18 00:00 64 01/26/18 23:30 67 16 177/82 (113) 95 01/26/18 23:00 73 01/26/18 22:30 95 Room Air 01/26/18 22:00 70 01/26/18 21:00 74 01/26/18 20:41 94 Nasal Cannula 2.00 01/26/18 20:15 98.4 66 16 155/71 (99) 95 01/26/18 20:00 66 01/26/18 19:00 70 01/26/18 18:00 67 01/26/18 17:00 74 01/26/18 16:00 69 01/26/18 15:00 98.1 69 19 146/68 (94) 94 01/26/18 15:00 68 Result Diagram: 01/24/18 0349 01/24/18 0349 (1) S/P thoracotomy Plan: pain controlled leave chest tube in + 1 air leak / placed to water seal pulm toileting await path (2) COPD (chronic obstructive pulmonary disease) Plan: nebs (3) Tobacco abuse Plan: smoking cessation (4) Lung mass Plan: path pending Sandra Otto Jan 27, 2018 14:55
[2018-01-27] MEDS: PANTOPRAZOLE SOD 40 MG DELAYED RELEASE TAB PO SCH (21:43)
[2018-01-28] VITALS (26 sets, daily range): BP systolic 141–164; BP diastolic 62–75; PULSE 56–80; RESP 18; TEMP 97.6–98.4; O2SAT 96–98
[2018-01-28] MEDS: ACETAMINOPHEN/HYDROcodone 325 MG/5 MG TAB PO PRN ×2 (03:10→07:12)
--- NOTE | 2018-01-28 05:42 | RADRPT ---
EXAM DATE: 01/28/2018 5:24 AM EDT AGE/SEX: 62 years / Male INDICATIONS: Short of breath. CLINICAL DATA: This is the patient's subsequent encounter. Patient reports that signs and symptoms h ave been present for 3 days and indicates a pain score of 0/10. MEDICAL/SURGICAL HISTORY: . Smoker. . Left side chest tube placement. Thoracoscopy. COMPARISON: [facility] – [place], CHEST SINGLE AP, 01/27/2018. . FINDINGS: Single AP view of the chest. Left-sided chest tube remains in place. No evidence of pneumothorax. Mil d inferior right lung base atelectasis. CONCLUSION: Left-sided chest tube remains in place. No evidence of pneumothorax. Mild inferior right lung base at electasis. Electronically signed by: Bonifacio Ríos MD 01/28/2018 5:41 AM EDT
[2018-01-28] MEDS ORDERED: BISACODYL 10 MG SUPP RECTAL PRN (06:00)
[2018-01-28] MEDS: TAMSULOSIN HCL 0.4 MG CAP PO SCH (08:28)
[2018-01-28] MEDS: POLYETHYLENE GLYCOL 17 GM PKG PO SCH (08:28)
[2018-01-28] MEDS: SODIUM CHLORIDE 0.9% FLUSH 10 ML FLUSH IV FLUSH SCH ×2 (08:28→21:00)
[2018-01-28] MEDS: DOCUSATE SODIUM 100 MG CAP PO SCH ×2 (08:28→21:42)
--- NOTE | 2018-01-28 09:34 | PD.CAR.PN ---
CVT Progress Note Subjective/Hospital Course: 62/ male hx of tobacco abuse 2-3ppd fpr 47 yrs . Underwent routine physical exam , CT chest showed 1 cm left upper lobe mass . PET scan showed hypermetabolism consistent with malignancy. electively admitted for surgery 01/23 surgery: Left thoracoscopic excisional biopsy left upper lobe mass VATS left upper lobectomy with lymph node sampling 01/24 doing well , up in chair chest tube to wall suction + 1 air leak drained 270cc/ 12 hrs pain controlled 01/[address] with small air-leak. 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 01/26 Doing well Continued air-leak Maintain CT 01/27 chest tube to water seal drained 150cc/ 12 hrs + 1 air leak / CXR no PTX f/u CXR in am path pending 01/28 still has +1 air leak no ptx on chest xray will leave to water seal f/u CXR in am add norvasc for BP control Objective: Vital Signs Date Time Temp Pulse Resp B/P (MAP) Pulse Ox O2 Delivery O2 Flow Rate FiO2 01/28/18 08:30 97 Room Air 01/28/18 08:30 98.0 63 18 164/75 (104) 97 01/28/18 06:00 70 01/28/18 05:00 67 01/28/18 04:00 67 01/28/18 03:00 97.6 70 18 141/62 (88) 96 01/28/18 03:00 62 01/28/18 03:00 96 Room Air 01/28/18 02:00 67 01/28/18 01:00 66 01/28/18 00:00 69 01/27/18 23:00 64 01/27/18 23:00 96 Room Air 01/27/18 23:00 97.7 69 18 160/74 (102) 97 01/27/18 22:00 79 01/27/18 21:00 75 01/27/18 20:00 70 01/27/18 19:00 97.8 66 18 164/78 (106) 96 01/27/18 19:00 67 01/27/18 19:00 95 Room Air 01/27/18 18:01 70 01/27/18 17:08 72 01/27/18 16:09 69 01/27/18 15:15 18 01/27/18 15:05 97.6 71 18 133/61 (85) 96 01/27/18 15:05 64 01/27/18 14:14 69 01/27/18 13:11 67 01/27/18 12:16 62 01/27/18 11:00 90 01/27/18 11:00 97.7 71 18 144/68 (93) 94 01/27/18 10:11 69 Result Diagram: 01/24/18 0349 01/24/18 0349 (1) S/P thoracotomy Plan: pain controlled leave chest tube in + 1 air leak / placed to water seal pulm toileting await path (2) COPD (chronic obstructive pulmonary disease) Plan: nebs (3) Tobacco abuse Plan: smoking cessation (4) Lung mass Plan: path pending Sandra Otto Jan 28, 2018 09:34
[2018-01-28] MEDS: PANTOPRAZOLE SOD 40 MG DELAYED RELEASE TAB PO SCH (21:42)
[2018-01-29] VITALS (24 sets, daily range): BP systolic 128–171; BP diastolic 64–75; PULSE 68–95; RESP 18; TEMP 97.6–98.4; O2SAT 97–98
--- NOTE | 2018-01-29 04:17 | RADRPT ---
EXAM DATE: 01/29/2018 4:13 AM EDT AGE/SEX: 62 years / Male INDICATIONS: Short of breath, chest tube/air leak. CLINICAL DATA: This is the patient's subsequent encounter. Patient reports that signs and symptoms h ave been present for 1 week and indicates a pain score of 0/10. MEDICAL/SURGICAL HISTORY: . Smoker . Left side chest tube placement. Thoracoscopy. [place] [facility] [place] . FINDINGS: Single AP view the chest. Left-sided chest tube remains in place. Lungs are clear. No evidence of pne umothorax. Cardiomediastinal silhouette within normal limits. CONCLUSION: Left-sided chest tube again seen. No evidence of pneumothorax. Electronically signed by: Bonifacio Ríos MD 01/29/2018 4:15 AM EDT
[2018-01-29] MEDS: SODIUM CHLORIDE 0.9% FLUSH 10 ML FLUSH IV FLUSH SCH ×2 (08:42→20:36)
[2018-01-29] MEDS: POLYETHYLENE GLYCOL 17 GM PKG PO SCH (08:49)
[2018-01-29] MEDS: TAMSULOSIN HCL 0.4 MG CAP PO SCH (08:49)
[2018-01-29] MEDS: DOCUSATE SODIUM 100 MG CAP PO SCH ×2 (08:49→20:36)
[2018-01-29] MEDS: amLODIPine BESYLATE 5 MG TAB PO SCH (09:45)
--- NOTE | 2018-01-29 13:49 | PD.CAR.PN ---
CVT Progress Note Subjective/Hospital Course: 62/ male hx of tobacco abuse 2-3ppd fpr 47 yrs . Underwent routine physical exam , CT chest showed 1 cm left upper lobe mass . PET scan showed hypermetabolism consistent with malignancy. electively admitted for surgery 01/23 surgery: Left thoracoscopic excisional biopsy left upper lobe mass VATS left upper lobectomy with lymph node sampling 01/24 doing well , up in chair chest tube to wall suction + 1 air leak drained 270cc/ 12 hrs pain controlled 01/[address] with small air-leak. 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 incision intact left postero lateral chest wall HEAD: Normocephalic. EYES: No scleral icterus. No injection or drainage. NECK: Supple, trachea midline. No JVD or lymphadenopathy. CARDIOVASCULAR: Regular rate and rhythm without murmurs, gallops, or rubs. RESPIRATORY: Breath sounds equal bilaterally. No accessory muscle use. chest tube to water seal + 1 air leak GASTROINTESTINAL: Abdomen soft, non-tender, nondistended. MUSCULOSKELETAL: No cyanosis, or edema. BACK: Nontender without obvious deformity. No CVA tenderness. Vital Signs Date Time Temp Pulse Resp B/P (MAP) Pulse Ox O2 Delivery O2 Flow Rate FiO2 01/29/18 13:03 95 01/29/18 12:31 80 01/29/18 11:16 81 01/29/18 11:16 98 Room Air 01/29/18 11:16 97.6 78 18 144/72 (96) 98 01/29/18 10:06 72 01/29/18 09:32 89 01/29/18 08:30 97.7 73 18 158/74 (102) 97 01/29/18 08:30 97 Room Air 01/29/18 08:30 68 01/29/18 06:00 69 01/29/18 05:00 68 01/29/18 04:00 72 01/29/18 03:00 98 Room Air 01/29/18 03:00 98.3 69 18 171/75 (107) 98 01/29/18 03:00 69 01/29/18 02:00 92 01/29/18 01:00 70 01/29/18 00:00 73 01/28/18 23:00 98 Room Air 01/28/18 23:00 98.1 73 18 141/65 (90) 98 01/28/18 23:00 71 01/28/18 22:00 75 01/28/18 21:00 75 01/28/18 20:00 80 01/28/18 19:00 74 01/28/18 19:00 97 Room Air 01/28/18 19:00 98.2 74 18 150/70 (96) 97 01/28/18 18:01 75 01/28/18 17:01 76 01/28/18 16:01 70 01/28/18 15:30 98.4 77 18 143/67 (92) 97 01/28/18 15:30 97 Room Air 01/28/18 15:00 68 01/28/18 14:01 74 Telemetry: NSR (1) S/P thoracotomy Plan: pain controlled leave chest tube in + 1 air leak / water seal pulm toileting path: HISTOLOGIC TYPE: INVASIVE MUCINOUS ADENOCARCINOMA. RESECTION MARGINS: ALL MARGINS UNINVOLVED BY CARCINOMA. LYMPH NODE EXAMINATION:NUMBER OF LYMPH NODES INVOLVED: 0 PATHOLOGIC STAGE CLASSIFICATION (pTNM, AJCC 8th Edition): PRIMARY TUMOR: pT1a. REGIONAL LYMPH NODES: pN0. if pt still has air leak in am , eval for pneumostat valve and dc home (2) COPD (chronic obstructive pulmonary disease) Plan: nebs (3) Tobacco abuse Plan: smoking cessation (4) Lung mass Sandra Otto Jan 29, 2018 13:49
[2018-01-29] MEDS ORDERED: HYDR-3516 PO (13:52)
[2018-01-29] MEDS ORDERED: TAMS5CAP PO (13:52)
[2018-01-29] MEDS ORDERED: AMLO5 PO (13:52)
[2018-01-29] MEDS ORDERED: DOCU1CAP39 PO (13:52)
[2018-01-29] MEDS: ACETAMINOPHEN/HYDROcodone 325 MG/5 MG TAB PO PRN (18:44)
[2018-01-29] MEDS: PANTOPRAZOLE SOD 40 MG DELAYED RELEASE TAB PO SCH (20:36)
[2018-01-30] VITALS (13 sets, daily range): BP systolic 133–136; BP diastolic 65–67; PULSE 69–84; RESP 16; TEMP 98.1; O2SAT 97
[2018-01-30] MEDS: POLYETHYLENE GLYCOL 17 GM PKG PO SCH (08:58)
[2018-01-30] MEDS: DOCUSATE SODIUM 100 MG CAP PO SCH (08:59)
[2018-01-30] MEDS: amLODIPine BESYLATE 5 MG TAB PO SCH (08:59)
[2018-01-30] MEDS: TAMSULOSIN HCL 0.4 MG CAP PO SCH (08:59)
[2018-01-30] MEDS: SODIUM CHLORIDE 0.9% FLUSH 10 ML FLUSH IV FLUSH SCH (09:00)
--- NOTE | 2018-01-30 10:05 | HHI.DS ---
Discharge Summary Admission Date Jan 23, 2018 at 05:31 Discharge Date: Jan 30, 2018 Admitting Diagnosis lung mass COPD (1) COPD (chronic obstructive pulmonary disease) Diagnosis: Principal ICD Codes: J44.9 - Chronic obstructive pulmonary disease, unspecified (2) Tobacco abuse Diagnosis: Principal ICD Codes: Z72.0 - Tobacco use (3) Lung mass Diagnosis: Principal ICD Codes: R91.8 - Other nonspecific abnormal finding of lung field (4) S/P thoracotomy Diagnosis: Secondary ICD Codes: Z98.890 - Other specified postprocedural states Procedures Left thoracoscopic excisional biopsy left upper lobe mass 01/23 VATS left upper lobectomy with lymph node sampling Brief History 62/ male hx of tobacco abuse 2-3ppd fpr 47 yrs . Underwent routine physical exam , CT chest showed 1 cm left upper lobe mass . PET scan showed hypermetabolism consistent with malignancy. electively admitted for surgery 01/23 surgery: Left thoracoscopic excisional biopsy left upper lobe mass VATS left upper lobectomy with lymph node sampling Imaging Last Impressions Chest X-Ray 01/29/18 0600 Signed Impressions: CONCLUSION: Left-sided chest tube again seen. No evidence of pneumothorax. PE at Discharge GENERAL: A&O x 3 SKIN: Warm and dry. chest tube left lateral chest wall / pneumostat placed HEAD: Normocephalic. EYES: No scleral icterus. No injection or drainage. NECK: Supple, trachea midline. No JVD or lymphadenopathy. CARDIOVASCULAR: Regular rate and rhythm without murmurs, gallops, or rubs. RESPIRATORY: Breath sounds equal bilaterally. No accessory muscle use. GASTROINTESTINAL: Abdomen soft, non-tender, nondistended. MUSCULOSKELETAL: No cyanosis, or edema. BACK: Nontender without obvious deformity. No CVA tenderness. Hospital Course 01/23 surgery: Left thoracoscopic excisional biopsy left upper lobe mass VATS left upper lobectomy with lymph node sampling 01/24 doing well , up in chair chest tube to wall suction + 1 air leak drained 270cc/ 12 hrs pain controlled 01/[address] with small air-leak. 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 01/26 Doing well Continued air-leak Maintain CT 01/27 chest tube to water seal drained 150cc/ 12 hrs + 1 air leak / CXR no PTX f/u CXR in am path pending 01/28 still has +1 air leak no ptx on chest xray will leave to water seal f/u CXR in am add norvasc for BP control 01/29 still has + 1 air leak , continue water seal, if no improvement in am eval for placement of pneumostat drain and dc home with f/u CXR CXR no evidence of PTX 01/30 pt doing well , stable for discharge with pneumostat and instructions on drainage and dressing f/u CXR in one week /f/u Dr Cox Pt Condition on Discharge: Good Discharge Disposition: Disch w/ Home Health Serv Discharge Instructions DIET: Follow Instructions for: As Tolerated, No Restrictions Activities you can perform: Full Weight Bearing, Shower Only-No Bath Activities to avoid: Strenuous Activity, Driving Additional Activity Instructio: no lifting > 8 lbs or gallon of milk Follow up Referrals: PCP Follow-up - 2 Weeks with Anil Wall M.d. Surgical - 2 Weeks with Sandra Otto New Orders: X-RAY CHEST PA & LAT - 1 Week New Medications: Amlodipine (Norvasc) 5 Mg Tab 5 MG PO DAILY for Blood Pressure Management, #30 TAB 2 Refills Docusate Sodium (Dok) 100 Mg Cap 100 MG PO BID for Constipation, #30 CAP 0 Refills Hydrocodone/Acetaminophen (Hydrocodone-Acetamin 5-325 mg) 5 Mg-325 Mg Tablet 1 TAB PO Q4H PRN for PAIN SCALE 1 TO 6, #40 TAB 0 Refills Tamsulosin (Flomax) 0.4 Mg Cap 0.4 MG PO DAILY for urinary retention, #30 CAP 2 Refills Sandra Otto Jan 30, 2018 10:05
== END 2018-01-30 11:49 | disposition home health service (06) | DRG 164 ==
LOC: HSDI 05:31 → HCPC 15:50
PROVIDERS: ADMIT Thoracic Surgery (Cardiothoracic Vascular Surgery); ATTEND Thoracic Surgery (Cardiothoracic Vascular Surgery)
PROC: 07B74ZX Excision of Thorax Lymphatic, Percutaneous Endoscopic Approach, Diagnostic (ICD-10-PCS; 2018-01-23)
PROC: 0BTG4ZZ Resection of Left Upper Lung Lobe, Percutaneous Endoscopic Approach (ICD-10-PCS; principal; 2018-01-23 07:18)
PROC: 0BBG4ZX Excision of Left Upper Lung Lobe, Percutaneous Endoscopic Approach, Diagnostic (ICD-10-PCS; 2018-01-23 07:18)
DX: C34.12 Malignant neoplasm of upper lobe, left bronchus or lung (principal); J93.82 Other air leak; J44.9 Chronic obstructive pulmonary disease, unspecified; F17.210 Nicotine dependence, cigarettes, uncomplicated; R91.8 Other nonspecific abnormal finding of lung field; R00.1 Bradycardia, unspecified
CPT/HCPCS: 36415; 71045; 71046; 80048; 81001; 85025; 85027; 85610; 85730; 86850; 86900; 86901; 88307; 88331; 93005; 94010; 94150; 94640; 94664; C9290; J0690; J1100; J1170; J1885; J2250; J2270; J2405; J2710; J2930; J3010; J7120; J7613

== ENCOUNTER 2018-02-01 09:34 | Emergency (ER) | payer OTHER ==
[~2018-02-01] VITALS: Ht 177.8 cm; Wt 72.0 kg
[2018-02-01 09:38] VITALS: BP 161/67; PULSE 69; RESP 16; TEMP 97.9; O2SAT 97
--- NOTE | 2018-02-01 09:54 | PD ---
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 He just got discharged from the hospital yesterday. He had surgery with Dr. Cox for removal of cancer from his lung. He denies any fever or other concurrent complaints at this time. Quality is clear. Severity is increasing. He denies specific modifying factors. PFSH Past Medical History Autoimmune Disease: No Cancer: No Cardiovascular Problems: No COPD: Yes Diabetes: No Diminished Hearing: No Endocrine: No Genitourinary: No Hepatitis: No Hiatal Hernia: No Hypertension: Yes Immune Disorder: No Musculoskeletal: No Neurologic: No Psychiatric: No Reproductive: No Respiratory: Yes Thyroid Disease: No Past Surgical History AICD: No Joint Replacement: No Pacemaker: No Social History Alcohol Use: No Tobacco Use: Yes (CIG 2PPD) Substance Use: No Allergies-Medications (Allergen,Severity, Reaction): Coded Allergies: No Known Allergies (Unverified Allergy, Unknown, 02/01/18) Reported Meds & Prescriptions Reported Meds & Active Scripts Active Hydrocodone-Acetamin 5-325 mg (Hydrocodone/Acetaminophen) 5 Mg-325 Mg Tablet 1 Tab PO Q4H PRN Norvasc (Amlodipine Besylate) 5 Mg Tab 5 Mg PO DAILY Review of Systems Except as stated in HPI: all other systems reviewed are Neg Physical Exam Narrative GENERAL: 62-year-old male in no apparent distress SKIN: Focused skin assessment warm/dry. HEAD: Atraumatic. Normocephalic. EYES: Pupils equal and round. No injection or drainage. ENT: No nasal bleeding or discharge. Mucous membranes pink and moist. NECK: Trachea midline. No JVD. CARDIOVASCULAR: Regular rate and rhythm. RESPIRATORY: No accessory muscle use. Clear to auscultation. Breath sounds equal bilaterally. MUSCULOSKELETAL: No obvious deformities. No clubbing. No cyanosis. NEUROLOGICAL: Awake and alert. No obvious cranial nerve deficits. Motor grossly within normal limits. Normal speech. PSYCHIATRIC: Appropriate mood and affect; insight and judgment normal. Chest wall: Left lower chest wall with tube noted with clear serosanguineous fluid draining around, end of tube collection drain has small amount of dried blood Data Data Last Documented VS Vital Signs Date Time Temp Pulse Resp B/P (MAP) Pulse Ox O2 Delivery O2 Flow Rate FiO2 02/01/18 09:38 97.9 69 16 161/67 (98) 97 Orders Orders Chest, Pa & Lat (02/01/18 ) Ed Discharge Order (02/01/18 10:12) MDM Medical Decision Making Medical Screen Exam Complete: Yes Emergency Medical Condition: Yes Medical Record Reviewed: Yes (Past history confirmed, recent surgery reviewed) Interpretation(s) Last 24 hours Impressions Chest X-Ray 02/01/18 0000 Signed Impressions: CONCLUSION: 1. Left chest tube in stable position with no pneumothorax visualized. 2. Atelectasis versus consolidation in the right middle lobe. Differential Diagnosis Effusion, dislodgment, clogged tube Narrative Course We will check chest x-ray and discuss with his surgeon cxr stable, Patient denies any new complaints and states that they are feeling better. Dressing changed, patient happy with care, all questions answered. Patient knows that follow up is incumbent on them and to return to the emergency room immediately if new or worsening symptoms develop. Patient given strict return precautions, vitals reviewed and are normal, agrees to further workup as an outpatient. Physician Communication Physician Communication dr cox states if chest x-ray is okay to change bandage and he can follow in the office without additional testing here Diagnosis Primary Impression: Chest tube in place Patient Instructions: General Instructions Additional Instructions: call dr cox to try and move your appointment up, return as needed Med/Other Pt SpecificInfo: No Change to Meds Disposition: 01 DISCHARGE HOME Condition: Stable Yarely Gillette MD Feb 01, 2018 09:54
--- NOTE | 2018-02-01 10:08 | RADRPT ---
EXAM DATE: 02/01/2018 10:03 AM EDT AGE/SEX: 62 years / Male INDICATIONS: Chest tube leaking, left chest wall pain CLINICAL DATA: This is the patient's initial encounter. Patient reports that signs and symptoms have been present for 1 day and indicates a pain score of 5/10. MEDICAL/SURGICAL HISTORY: Carcinoma, lung. Lobectomy. COMPARISON: [facility] [place]. . FINDINGS: Frontal and lateral views of the chest demonstrate a normal-sized cardiac silhouette with calcificati on of the aorta. A large bore left chest tube is present with tip at the apex of the left hemithorax. No pneumothorax is visualized. There is atelectasis versus airspace consolidation in the right middl e lobe. The bones and soft tissues demonstrate no acute abnormality. CONCLUSION: 1. Left chest tube in stable position with no pneumothorax visualized. 2. Atelectasis versus consolidation in the right middle lobe. Electronically signed by: Tj Frost MD 02/01/2018 10:07 AM EDT
== END 2018-02-01 10:23 | disposition home or self-care (01) ==
LOC: PHED 09:34
DX: Z46.82 Encounter for fitting and adjustment of non-vascular catheter (principal); J44.9 Chronic obstructive pulmonary disease, unspecified; I10 Essential (primary) hypertension; F17.210 Nicotine dependence, cigarettes, uncomplicated; Z79.899 Other long term (current) drug therapy
CPT/HCPCS: 71046; 99283

== ENCOUNTER 2018-02-01 14:56 | Emergency (ER) | payer OTHER ==
[~2018-02-01] VITALS: Ht 177.8 cm; Wt 73.0 kg
[2018-02-01 14:59] VITALS: BP 150/68; PULSE 70; RESP 16; TEMP 98; O2SAT 96
--- NOTE | 2018-02-01 15:11 | PD ---
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 He states he needs his bandage change. 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 He denies any new complaints since recent visit. PFSH Past Medical History Autoimmune Disease: No Cancer: Yes Cardiovascular Problems: No COPD: Yes Diabetes: No Diminished Hearing: No Endocrine: No Genitourinary: No Hepatitis: No Hiatal Hernia: No Hypertension: Yes Immune Disorder: No Musculoskeletal: No Neurologic: No Psychiatric: No Reproductive: No Respiratory: Yes Thyroid Disease: No Tetanus Vaccination: Unknown Influenza Vaccination: No Past Surgical History AICD: No Joint Replacement: No Pacemaker: No Social History Alcohol Use: No Tobacco Use: Yes (CIG 2PPD) Substance Use: No Allergies-Medications (Allergen,Severity, Reaction): Coded Allergies: No Known Allergies (Unverified Allergy, Unknown, 02/01/18) Reported Meds & Prescriptions Reported Meds & Active Scripts Active Hydrocodone-Acetamin 5-325 mg (Hydrocodone/Acetaminophen) 5 Mg-325 Mg Tablet 1 Tab PO Q4H PRN Norvasc (Amlodipine Besylate) 5 Mg Tab 5 Mg PO DAILY Review of Systems Except as stated in HPI: all other systems reviewed are Neg Physical Exam Narrative GENERAL: 62-year-old male in no apparent distress SKIN: Focused skin assessment warm/dry. HEAD: Atraumatic. Normocephalic. EYES: Pupils equal and round. No scleral icterus. No injection or drainage. ENT: No nasal bleeding or discharge. Mucous membranes pink and moist. NECK: Trachea midline. CARDIOVASCULAR: Regular rate and rhythm. RESPIRATORY: No accessory muscle use. no increased effort MUSCULOSKELETAL: No obvious deformities. No clubbing. No cyanosis. NEUROLOGICAL: Awake and alert. Moves all extremities. Normal speech. Chest wall: Patient has same serosanguineous type fluid noted on bandage Data Data Last Documented VS Vital Signs Date Time Temp Pulse Resp B/P (MAP) Pulse Ox O2 Delivery O2 Flow Rate FiO2 02/01/18 15:04 Room Air 02/01/18 14:59 98.0 70 16 150/68 (95) 96 Orders Orders Change Dressing (02/01/18 15:10) Ed Discharge Order (02/01/18 15:10) MDM Medical Decision Making Medical Screen Exam Complete: Yes Emergency Medical Condition: Yes Medical Record Reviewed: Yes (h confirmed) Differential Diagnosis Dressing change, effusion Narrative Course Given no change from prior with recent x-ray and recent discussion with his surgeon he is in agreement for dressing change and outpatient follow-up. Lengthy discussion and questions answered Diagnosis Primary Impression: Dressing change Patient Instructions: General Instructions Additional Instructions: return with any emergent need Med/Other Pt SpecificInfo: No Change to Meds Disposition: 01 DISCHARGE HOME Condition: Stable Yarely Gillette MD Feb 01, 2018 15:11
== END 2018-02-01 15:28 | disposition home or self-care (01) ==
LOC: PHED 14:56
DX: Z48.00 Encounter for change or removal of nonsurgical wound dressing (principal); J44.9 Chronic obstructive pulmonary disease, unspecified; I10 Essential (primary) hypertension; F17.210 Nicotine dependence, cigarettes, uncomplicated; Z79.899 Other long term (current) drug therapy
CPT/HCPCS: 99281

== ENCOUNTER → 2018-02-03 | Outpatient (CLI) | payer OTHER ==
[~2018-02-03] MED LIST changes: -DOCU1CAP39 PO; -TAMS5CAP PO
--- NOTE | 2018-02-03 15:09 | RADRPT ---
EXAM DATE: 02/03/2018 2:28 PM EDT AGE/SEX: 62 years / Male INDICATIONS: Status post thoracotomy. CLINICAL DATA: This is the patient's sequela encounter. Patient reports that signs and symptoms have been present for 1 day and indicates a pain score of 0/10. MEDICAL/SURGICAL HISTORY: . Carcinoma, lung Lobectomy. COMPARISON: [facility], CHEST PA & LAT, 02/01/2018. . FINDINGS: The left-sided chest tube has been removed. There is a mild to moderate left pneumothorax measuring u p to 2.2 cm. There is some suspected atelectasis at the medial left lung base. The heart size is norm al. Significant shift of heart and mediastinal structures is not seen. There appears to be a clip and lung rian in the left hilum. CONCLUSION: Removal the left chest tube with a new mild to moderate left pneumothorax measuring 2.2 cm is now see n. This information will be relayed to the floor. Electronically signed by: Tj Linares MD 02/03/2018 3:08 PM EDT
== END ==
LOC: HRAD 14:03
PROVIDERS: ATTEND Thoracic Surgery (Cardiothoracic Vascular Surgery)
DX: Z98.890 Other specified postprocedural states (principal)
CPT/HCPCS: 71046